=== PATIENT | female | born 1965 | race Caucasian/White ===

== ENCOUNTER → 2021-07-04 | Day surgery (SDC) | payer OTHER ==
[~2021-07-04] VITALS: Ht 160 cm; Wt 92.1 kg
[~2021-07-04] MED LIST: ELIQUIS5 MG PO; NEURONTIN100 MG PO; PREMARIN0.625 MG PO; PROTONIX 40MG T40 MG PO
== END | disposition home or self-care (01) ==
LOC: FAS 07:31
DX: K22.2 Esophageal obstruction (principal); K29.80 Duodenitis without bleeding; K31.9 Disease of stomach and duodenum, unspecified; K21.9 Gastro-esophageal reflux disease without esophagitis; K44.9 Diaphragmatic hernia without obstruction or gangrene; Z90.49 Acquired absence of other specified parts of digestive tract; Z85.43 Personal history of malignant neoplasm of ovary; Z86.718 Personal history of other venous thrombosis and embolism; Z79.01 Long term (current) use of anticoagulants; J44.9 Chronic obstructive pulmonary disease, unspecified; G43.909 Migraine, unspecified, not intractable, without status migrainosus; F17.210 Nicotine dependence, cigarettes, uncomplicated; D68.9 Coagulation defect, unspecified; R93.3 Abnormal findings on diagnostic imaging of other parts of digestive tract; Z88.8 Allergy status to other drugs, medicaments and biological substances; K58.9 Irritable bowel syndrome, unspecified
CPT/HCPCS: J2704; J7120